=== PATIENT | female | born 1970 | race Caucasian/White ===

== ENCOUNTER 2021-08-09 18:39 | Inpatient (IN) | payer OTHER ==
[~2021-08-09] VITALS: Ht 172.7 cm; Wt 82.7 kg
[2021-08-09 18:39] VITALS: BP_SYST 135
--- NOTE | 2021-08-09 18:39 | NUR ---
PT WITH VENT SETTING OF AC18, VT 450, PEEP +5, 100%
--- NOTE | 2021-08-09 18:39 | NUR ---
PT FOUND [facility] [place], OVERDOSE, GIVEN NARCAN INTRANASALLY BY MEDICS. POSSIBLE OVERDOSE ON FENTANYL PER PARAMEDICS. ALL STAFF TO BEDSIDE FOR QUICK INTERVENTIO
--- NOTE | 2021-08-09 18:39 | NUR ---
UPON ARRIVAL TO ER, PT WAS UNRESPONSIVE AND DR PALAFOX ORDERS FOR INTUBATION, PT INTUBATED AT 1836, WITH 7.0, 22 AT THE LIP.
--- NOTE | 2021-08-09 18:46 | NUR ---
CENTRAL LINE TO LEFT SUBCLAVIAN PLACED BY DR PALAFOX.
[2021-08-09] MEDS ORDERED: NACL 0.9% 1,000 ML IV ONE ×2 (19:00→19:30)
[2021-08-09 19:05] LABS: BILIRUBIN,URINE 1+ (NEGATIVE); COLOR,URINE YELLOW (YELLOW); GLUCOSE,URINE NEGATIVE (NEGATIVE); KETONES,URINE TRACE (NEGATIVE); LEUKOCYTE ESTERASE ,URINE TRACE (NEGATIVE); NITRITE, URINE NEGATIVE (NEGATIVE); PH,URINE 5.5 (5.0-8.0); PROTEIN URINE 2+ (NEGATIVE); UROBILINOGEN,URINE 0.2 (0.2-1.0)
[2021-08-09 19:12] LABS: BLOOD, URINE TRACE (NEGATIVE); CLARITY/URINE HAZY (CLEAR)
[2021-08-09] MEDS ORDERED: PROPOFOL DRIP 100 ML IV ONE (19:15)
[2021-08-09] MEDS ORDERED: VANCOMYCIN HCL 1,000 MG in NS 250 ML IV ONE (19:15)
[2021-08-09] MEDS ORDERED: PIPERACILLIN/TAZO 3.375 GM in NS 50 ML IV ONE (19:15)
[2021-08-09 19:19] LABS: CREATININE 1.16 mg/dL (0.55-1.30); POTASSIUM 3.1 mmol/L (3.5-5.1)
[2021-08-09] MEDS ORDERED: PIPERACILLIN/TAZOBACTAM 3.375 GM/VIAL (ZOSYN) IV ONE (19:21)
[2021-08-09 19:23] LABS: BASOPHILS # (AUTO) 0.1 K/uL (0.0-0.2); BASOPHILS % (AUTO) 0.9 % (0.0-2.0); EOSINOPHILS # (AUTO) 0.4 K/uL (0.0-0.4); EOSINOPHILS % (AUTO) 4.1 % (0.0-4.0); HEMATOCRIT 36.4 % (36-48); HEMOGLOBIN 12.4 g/dL (12.0-16.0); LYMPHOCYTES # (AUTO) 2.2 K/uL (1.0-5.5); LYMPHOCYTES % (AUTO) 24.1 % (20.5-51.5); MEAN CORPUSCULAR HEMOGLOBIN 29 pg (27-31); MEAN CORPUSCULAR HGB CONC 34 % (32-36); MEAN CORPUSCULAR VOLUME 85 fL (79.0-98.0); MONOCYTES # (AUTO) 0.9 K/uL (0.0-1.0); MONOCYTES % (AUTO) 10.1 % (1.7-9.3); NEUTROPHILS # (AUTO) 5.5 K/uL (1.8-7.7); NEUTROPHILS % (AUTO) 60.8 % (40.0-70.0); PLATELET COUNT (AUTO) 573 K/uL (130-430); RED BLOOD CELL COUNT(AUTO) 4.28 MIL/uL (4.2-6.2); RED CELL DISTRIBUTION WIDTH 15.2 % (9.0-15.0); WHITE BLOOD COUNT (AUTO) 9.1 K/uL (4.8-10.8)
[2021-08-09 19:24] LABS: ALBUMIN 3.5 g/dL (3.4-4.8); BARBITURATE, URINE NEGATIVE (NEG <=200); BENZODIAZEPINE, URINE NEGATIVE (NEG <=150); CANNABINOID, URINE POSITIVE (NEG <=50); COCAINE, URINE NEGATIVE (NEG <=150); METHAMPHETAMINES SCREEN,URINE POSITIVE (NEG <=500); TOTAL BILIRUBIN 0.4 mg/dL (0.0-1.0); URINE AMPHETAMINE POSITIVE (NEG <=500); URINE METHADONE NEGATIVE (NEG <=200)
[2021-08-09 19:25] LABS: OPIATE, URINE NEGATIVE (NEG <=100); PHENCYCLIDINE SCREEN,URINE NEGATIVE (NEG <=25); UR TRICYCLIC ANTIDEPRESSANTS NEGATIVE (NEG <=300); URINE OXYCODONE SCREEN NEGATIVE (NEG <=100); URINE PROPOXYPHENE SCREEN NEGATIVE (NEG <=300)
[2021-08-09 19:26] LABS: BACTERIA,URINE FEW /HPF (None Seen); FINE GRANULAR CASTS,URINE 0-10 /LPF (None Seen); MUCUS,URINE None Seen /LPF (None Seen); YEAST,URINE Few /HPF (None Seen)
--- NOTE | 2021-08-09 19:44 | NUR ---
Pt in bed 1 at this time intubated. Central line placed by MD Brgiht in right subclavian. Awaiting verification of central line placement via Xray. Normal skin color for ethnicity.
--- NOTE | 2021-08-09 19:50 | NUR ---
Xray at bedside
--- NOTE | 2021-08-09 19:50 | NUR ---
triple lumen central line placed to right subclavian. Use of asceptic technique. Opsite placed over site. Blood return noted. Blood for lab drawn from site. Flushed with 10 cc of normal saline. No evidence of infiltration noted. Patient tolerated well.
--- NOTE | 2021-08-09 19:51 | NUR ---
Left subclavian central line removed by at this time due to incorrect placement
[2021-08-09] MEDS ORDERED: LORazepam 2 MG/ML VIAL IVP PRN (20:30)
[2021-08-09] MEDS ORDERED: ONDANSETRON HCL 4 MG/2 ML VIAL IVP PRN (20:30)
[2021-08-09] MEDS ORDERED: ACETAMINOPHEN 650 MG SUPP.RECT RC PRN (20:30)
[2021-08-09] MEDS ORDERED: KCL 40 mEq in 100 mL (PREMIX) 100 ML IV ONE (20:30)
[2021-08-09] MEDS ORDERED: PROPOFOL DRIP 100 ML IV PRN (20:30)
[2021-08-09] MEDS ORDERED: NOREPINEPHRINE BITARTRATE 32 MG in NS 218 ML IV PRN (20:30)
[2021-08-09] MEDS ORDERED: IPRATROPIUM/ALBUTEROL SULFATE 3 ML AMPUL.NEB (DUONEB) INH PRN (20:45)
[2021-08-09] MEDS: PANTOPRAZOLE SODIUM 40 MG/VIAL (PROTONIX) IVP SCH (21:59)
[2021-08-09] MEDS: LR 1,000 ML IV SCH (22:00)
[2021-08-09 23:23] VITALS: BP_SYST 103
[2021-08-09 23:38] VITALS: BP_SYST 103
[2021-08-10] MEDS ORDERED: KCL 20 mEq in 100 mL (PREMIX) 200 ML IV ONE (00:40)
[2021-08-10] MEDS ORDERED: PIPERACILLIN/TAZOBACTAM 3.375 GM/VIAL (ZOSYN) IV ONE ×3 (01:04→18:00)
[2021-08-10] MEDS: LR 1,000 ML IV SCH ×5 (01:13→12:24)
[2021-08-10] MEDS: PIPERACILLIN/TAZO 3.375 GM in NS 50 ML IV SCH ×4 (01:14→18:07)
[2021-08-10] MEDS: methylPREDNISolone SOD SUCC/PF 62.5 MG/ML VIAL IVP SCH ×4 (01:15→18:08)
[2021-08-10 03:13] VITALS: BP_SYST 99
--- NOTE | 2021-08-10 05:17 | NUR ---
No signs of acute distress at this time. Pt remains on vehicle monitor technician and pulse oximetry. Pt makes occasional non-purposeful movements with bilateral upper and lower extremities. VSS. Bed in low position. Side rails up.
[2021-08-10 06:00] VITALS: BP_SYST 102
--- NOTE | 2021-08-10 07:15 | NUR ---
PATIENT SELF EXTUBATED. MD GARCIA VERBALLY ORDERED RACEMIC EPINEPHRIN. GAVE RACEMIC EPINEPHRIN BUT PATIENT REFUSED HHN TX MIDDLE OF TX. PLACED ON NC 6LPM SPO2 96, HR 86. NO RESPIRATORY DISTRESS NOTED AT THIS TIME. WILL MONITOR PATIENT.
[2021-08-10] MEDS ORDERED: RACEPINEPHRINE HCL 0.5 ML VIAL.NEB INH ONE ×2 (07:17→07:30)
[2021-08-10] MEDS ORDERED: NALOXONE HCL 2 MG/2 ML SYR ONE (07:20)
--- NOTE | 2021-08-10 07:48 | NUR ---
Upon start of shift pt in bed intubated but awake. RASS score +3. Pt self extubated. ED physician at bedside. RT at bedside. Ed physician gave propofol bolus via central line to help pt calm down. Pt given 1 mg IV ativan per PRN orders. Pt put on NC O2 delivery at 5-6 L. Pt maintiang airway at this time. Will continue to monitor pt. Addendum: 08/10/21 at 1017 by [id number] Propofol drip stopped
[2021-08-10] MEDS ORDERED: NALOXONE HCL 2 MG/2 ML SYR IVP ONE (08:00)
--- NOTE | 2021-08-10 08:00 | NUR ---
Pt self removed ibrahim catheter.
--- NOTE | 2021-08-10 08:05 | NUR ---
Per ED physician orders. Pt placed on 2 point soft wrist restraints due to pulling on medical issues.
[2021-08-10 08:53] LABS: BASOPHILS # (AUTO) 0.1 K/uL (0.0-0.2); BASOPHILS % (AUTO) 0.7 % (0.0-2.0); EOSINOPHILS # (AUTO) 0.3 K/uL (0.0-0.4); EOSINOPHILS % (AUTO) 2.8 % (0.0-4.0); HEMATOCRIT 39.8 % (36-48); HEMOGLOBIN 13.1 g/dL (12.0-16.0); LYMPHOCYTES # (AUTO) 1.6 K/uL (1.0-5.5); LYMPHOCYTES % (AUTO) 16.2 % (20.5-51.5); MEAN CORPUSCULAR HEMOGLOBIN 28 pg (27-31); MEAN CORPUSCULAR HGB CONC 33 % (32-36); MEAN CORPUSCULAR VOLUME 86 fL (79.0-98.0); MONOCYTES % (AUTO) 9.8 % (1.7-9.3); NEUTROPHILS % (AUTO) 70.5 % (40.0-70.0); PLATELET COUNT (AUTO) 580 K/uL (130-430); RED BLOOD CELL COUNT(AUTO) 4.63 MIL/uL (4.2-6.2); RED CELL DISTRIBUTION WIDTH 15.6 % (9.0-15.0); WHITE BLOOD COUNT (AUTO) 9.9 K/uL (4.8-10.8)
[2021-08-10] MEDS: PANTOPRAZOLE SODIUM 40 MG/VIAL (PROTONIX) IVP SCH ×2 (09:45→21:00)
[2021-08-10 10:35] LABS: CALCIUM 7.3 mg/dL (8.4-11.0); CREATININE 0.97 mg/dL (0.55-1.30); POTASSIUM 4.2 mmol/L (3.5-5.1)
[2021-08-10 10:48] LABS: PHOSPHORUS 3.7 mg/dL (2.7-4.5); TOTAL BILIRUBIN 0.5 mg/dL (0.0-1.0)
[2021-08-10 11:40] LABS: ALBUMIN 2.9 g/dL (3.4-4.8)
[2021-08-10] MEDS: VANCOMYCIN HCL 750 MG in NS 250 ML IV SCH (12:01)
--- NOTE | 2021-08-10 12:12 | NUR ---
DR ABREU HERE TO EVALUATE PT
--- NOTE | 2021-08-10 13:11 | NUR ---
Pt sleeping at this time. Bilateral wrist restraints stopped at this time. Will continue to monitor pt.
--- NOTE | 2021-08-10 13:55 | NUR ---
Pt wrist restraints paused due to pt being more cooperative and sleeping. Pulses +2 BUE. Cap refill < 3sec. No complications noted. Will continue to monitor pt
--- NOTE | 2021-08-10 16:09 | NUR ---
25cc of propofol remainder of IV infusion wasted down drain witnessed by Riri VALDEZ.
--- NOTE | 2021-08-10 16:53 | NUR ---
Pt resting in bed. Pt sleeping at this time in no distress. 5L NC O2 delivery in place. Will continue to monitor pt
--- NOTE | 2021-08-10 19:26 | NUR ---
REPORT RECIEVED FROM SHANTA VALDEZ. PT IN BED RESTING, NO DISTRESS. WILL MONITOR CLOSELY
--- NOTE | 2021-08-10 19:44 | NUR ---
Admit bed requested Patient will be admitted to care of . Admitted to TELE unit. Diagnosis ACUTE RESP FAILURE Inpatient (Yes or No) YES Observation (Yes or No) YES Orientation concerns or request close to nursing station (Yes or No) YES Covid Status NEG On vent or bipap NO Isolation requirements NO Needs a sitter NO From Home (Yes or if No enter name of facility) YES Requires Dialysis (Yes or No) NO Med Rec Completed (Yes of No) PENDING
--- NOTE | 2021-08-10 23:35 | NUR ---
PT IN BED RESTING WITH NASAL CANNULA IN PLACE, PT IN NO ACUTE DISTRESS. PT PROVIDED WITH TOILETING AND HYGEIENE ASSISTANCE. PENDING ADMISSION, WILL MONITOR CLOSELY
[2021-08-11] MEDS: VANCOMYCIN HCL 750 MG in NS 250 ML IV SCH (02:22)
[2021-08-11] MEDS: LR 1,000 ML IV SCH ×2 (02:23→10:43)
--- NOTE | 2021-08-11 02:52 | NUR ---
Admission Note Received patient from ER with diagnosis of RESP FAILURE. Initial Plan of Care discussed-patient verbalized understanding. . Oriented to room, call light, pain management and safety procedures explained call aguirre use , FALL RISK MEASURES IMPLEMENTED assist as needed BED ALARM IS ON , MONITOR .
[2021-08-11 02:56] VITALS: BP_SYST 135
--- NOTE | 2021-08-11 03:45 | NUR ---
PHOTOS PICTURES TAKEN OF MULTIPLE DRY SCABS LEFT & RIGHT NECK ARMS & LEGS & PUT IN MEDICAL RECORD .
--- NOTE | 2021-08-11 03:46 | NUR ---
FALL RISK , PATIENT RESTING NO ACUTE DISTRESS BED ALARM IS ON , MONITOR .
[2021-08-11] MEDS ORDERED: PIPERACILLIN/TAZOBACTAM 3.375 GM/VIAL (ZOSYN) IV ONE (05:37)
[2021-08-11] MEDS: PIPERACILLIN/TAZO 3.375 GM in NS 50 ML IV SCH (06:01)
[2021-08-11] MEDS: methylPREDNISolone SOD SUCC/PF 62.5 MG/ML VIAL IVP SCH (06:02)
[2021-08-11] MEDS: PANTOPRAZOLE SODIUM 40 MG/VIAL (PROTONIX) IVP SCH ×2 (06:02→21:15)
[2021-08-11 07:31] LABS: BASOPHILS # (AUTO) 0.1 K/uL (0.0-0.2); BASOPHILS % (AUTO) 0.4 % (0.0-2.0); HEMATOCRIT 40.6 % (36-48); HEMOGLOBIN 13.4 g/dL (12.0-16.0); LYMPHOCYTES # (AUTO) 0.7 K/uL (1.0-5.5); LYMPHOCYTES % (AUTO) 3.2 % (20.5-51.5); MEAN CORPUSCULAR HEMOGLOBIN 29 pg (27-31); MEAN CORPUSCULAR HGB CONC 33 % (32-36); MEAN CORPUSCULAR VOLUME 87 fL (79.0-98.0); MONOCYTES % (AUTO) 4.4 % (1.7-9.3); NEUTROPHILS # (AUTO) 21.5 K/uL (1.8-7.7); PLATELET COUNT (AUTO) 548 K/uL (130-430); RED BLOOD CELL COUNT(AUTO) 4.68 MIL/uL (4.2-6.2); RED CELL DISTRIBUTION WIDTH 15.7 % (9.0-15.0); WHITE BLOOD COUNT (AUTO) 23.4 K/uL (4.8-10.8)
--- NOTE | 2021-08-11 08:00 | NUR ---
RECEIVED REPORT FROM PM NURSE, PATIENT RESTING COMFORTABLY IN BED, NO C/O PAIN OR DISCOMFORT AT THIS TIME, WILL ASSUME ALL CARE OF PATIENT
[2021-08-11 08:24] LABS: CREATININE 0.81 mg/dL (0.55-1.30); POTASSIUM 5.1 mmol/L (3.5-5.1); TOTAL BILIRUBIN 0.3 mg/dL (0.0-1.0)
--- NOTE | 2021-08-11 09:43 | NUR ---
CONSULTATION PAGED/CALLED Reason for Consultation: [] DEPRESSION/SUICIDAL IDEATION Person Who was Notified: [] DR VALLADARES ON HIS CELL Consulting Physician: [] DR VALLADARES Customs Opener Verifier Packer Specialty: [] PSYCH Ordering Physician: [] DR ABREU
--- NOTE | 2021-08-11 10:30 | NUR ---
PATIENT SEEN BY PSYCH, 5150 HOLD SIGNED BY
[2021-08-11 11:27] VITALS: BP_SYST 106
--- NOTE | 2021-08-11 12:46 | NUR ---
CONSULTATION PAGED/CALLED Reason for Consultation: [] Srpsis Person Who was Notified: []Magaly Consulting Physician: [] Darien Walters Transportation Refrigeration Technician Specialty: [] Infectious Ordering Physician: []Dr. Bishop
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
[2021-08-11] MEDS: PIPERACILLIN/TAZOBACTAM 3.375 GM/ DEX-IS 50 ML PREMIX IV SCH ×2 (13:45→21:15)
[2021-08-11 16:45] VITALS: BP_SYST 109
--- NOTE | 2021-08-11 18:09 | NUR ---
PATIENT ASLEEP, NO OUTWARD SIGNS OR SYMPTOMS OF DISTRESS OR DISCOMFORT OBSERVED, WILL ENDORSE CARE TO PM NURSE
--- NOTE | 2021-08-11 19:15 | NUR ---
OPENING NOTE PT IS SEMI FOWLERS SLEEPING IN BED. NO APPARENT SIGNS OF DISTRESS NOTED AT THIS TIME. BED IS IN LOWEST POSITION WITH FALL AND SAFETY PRECAUTIONS IN PLACE. SITTER PRESENT
[2021-08-11 20:00] VITALS: BP_SYST 104
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
[2021-08-11] MEDS: ACETAMINOPHEN 325 MG TABLET PO PRN (21:59)
[2021-08-12] VITALS: BP_SYST 110
[2021-08-12] MEDS: PIPERACILLIN/TAZOBACTAM 3.375 GM/ DEX-IS 50 ML PREMIX IV SCH ×4 (01:12→20:30)
--- NOTE | 2021-08-12 04:05 | NUR ---
LAB DRAW Patient resting in bed w/eyes closed. Awakened for lab draw by [employer]. Patient was calm and cooperative during procedure, tolerated.
[2021-08-12 04:46] LABS: BASOPHILS # (AUTO) 0.1 K/uL (0.0-0.2); BASOPHILS % (AUTO) 0.3 % (0.0-2.0); EOSINOPHILS % (AUTO) 0.2 % (0.0-4.0); HEMATOCRIT 37.7 % (36-48); HEMOGLOBIN 12.5 g/dL (12.0-16.0); LYMPHOCYTES # (AUTO) 1.7 K/uL (1.0-5.5); LYMPHOCYTES % (AUTO) 10.5 % (20.5-51.5); MEAN CORPUSCULAR HEMOGLOBIN 28 pg (27-31); MEAN CORPUSCULAR HGB CONC 33 % (32-36); MEAN CORPUSCULAR VOLUME 85 fL (79.0-98.0); MONOCYTES # (AUTO) 1.3 K/uL (0.0-1.0); MONOCYTES % (AUTO) 7.8 % (1.7-9.3); NEUTROPHILS # (AUTO) 13.4 K/uL (1.8-7.7); NEUTROPHILS % (AUTO) 81.2 % (40.0-70.0); PLATELET COUNT (AUTO) 515 K/uL (130-430); RED BLOOD CELL COUNT(AUTO) 4.42 MIL/uL (4.2-6.2); RED CELL DISTRIBUTION WIDTH 15.5 % (9.0-15.0); WHITE BLOOD COUNT (AUTO) 16.5 K/uL (4.8-10.8)
[2021-08-12 04:57] LABS: ALBUMIN 2.6 g/dL (3.4-4.8); CALCIUM 7.7 mg/dL (8.4-11.0); CREATININE 0.69 mg/dL (0.55-1.30); POTASSIUM 4.2 mmol/L (3.5-5.1); TOTAL BILIRUBIN 0.4 mg/dL (0.0-1.0)
--- NOTE | 2021-08-12 05:59 | NUR ---
PT AWAKE PT AWAKE TO USE THE BATHROOM. URINE SAMPLE COLLECTED. PT ASKED FOR SOME FOOD, PT ATE CRAKERS AND APPLE SAUCE. PT CALM AND COOPERATIVE
[2021-08-12 06:30] LABS: BILIRUBIN,URINE NEGATIVE (NEGATIVE); BLOOD, URINE NEGATIVE (NEGATIVE); CLARITY/URINE CLEAR (CLEAR); COLOR,URINE YELLOW (YELLOW); GLUCOSE,URINE NEGATIVE (NEGATIVE); KETONES,URINE TRACE (NEGATIVE); LEUKOCYTE ESTERASE ,URINE NEGATIVE (NEGATIVE); NITRITE, URINE NEGATIVE (NEGATIVE); PROTEIN URINE NEGATIVE (NEGATIVE); UROBILINOGEN,URINE 0.2 (0.2-1.0)
--- NOTE | 2021-08-12 07:04 | NUR ---
CLOSING NOTE PT IS SLEEPING IN BED. NO APPARENT DISTRESS AT THIS TIME. BED IS IN LOWEST POSITION WITH FALL AND SAFETY PRECAUTIONS IN PLACE. SITTER PRESENT
[2021-08-12] MEDS: PANTOPRAZOLE SODIUM 40 MG/VIAL (PROTONIX) IVP SCH ×2 (11:23→20:30)
--- NOTE | 2021-08-12 20:00 | NUR ---
Patient alert/oriented x4 denies any suicidal thought calm/cooperative, sitter at bedside.
[2021-08-12 20:07] VITALS: BP_SYST 121
--- NOTE | 2021-08-12 23:20 | NUR ---
PATIENT RESTING: Patient resting quietly. No acute distress noted. Vital signs within normal range.
[2021-08-13 00:10] VITALS: BP_SYST 115
[2021-08-13] MEDS: PIPERACILLIN/TAZOBACTAM 3.375 GM/ DEX-IS 50 ML PREMIX IV SCH ×4 (01:31→21:55)
--- NOTE | 2021-08-13 01:51 | NUR ---
Rounds Patient resting no sign of acute distress., sitter at the bedside.
--- NOTE | 2021-08-13 06:09 | NUR ---
Patient calm and cooperative denies any thought of hurting herself,with sitter at the bedside.
[2021-08-13 08:00] VITALS: BP_SYST 119
--- NOTE | 2021-08-13 08:00 | NUR ---
OPENING NOTE Patient in bed resting, AxO x4. No sign of distress, patient denies pain. Patient denies thoughts of suicide or harm to self or others. IV site is clean, dry, intact and running prescribed fluids. Sitter at bedside for direct observation. Safety checks made and all needs met at this time.
[2021-08-13] MEDS: CITALOPRAM HYDROBROMIDE 20 MG TABLET PO SCH (08:37)
[2021-08-13] MEDS ORDERED: ESCITALOPRAM OXALATE 10 MG TABLET PO SCH (09:00)
[2021-08-13] MEDS: PANTOPRAZOLE SODIUM 40 MG/VIAL (PROTONIX) IVP SCH ×2 (09:00→21:56)
[2021-08-13 12:16] VITALS: BP_SYST 96
--- NOTE | 2021-08-13 12:53 | NUR ---
ROUNDS Patient in bed resting with eyes closed. No sign of distress or pain. IV is patent and running prescribed fluids. Sitter present for direct observation. All needs met at this time and safety checks made.
[2021-08-13 16:00] VITALS: BP_SYST 112
--- NOTE | 2021-08-13 19:30 | NUR ---
PM OPENING NOTES HAND-FF REPORT RECEIVED FROM OSMANY WALLIS RN. REPORTED PT ON 5150 72 HOUR HOLD THAT ENDED THIS A.M. (BUT ACTUALLY FOUND OUT ENDS TOMORROW A.M AT 1000) ONE TO ONE OBSERVATION MAINTAINED. REPORTED SCRATCHES TO NECK AND ARM NEEDS PICS TAKEN. PLAN: D/D TO SNF OR PSYCH SETTING PT IS HOMELESS AND LIVES IN CAR WITH DOG. (MINIATURE PINCHER). BRP, GAIT STEADY. RIGHT SUBCLAVIAN INTACT. PT UNDISTURBED PRESENTLY. ALLOW TO SLEEP. WHEN AWAKE CAN BE ANXIOUS. MONITOR AND ASSIST NEEDED. BED IN LOWEST POSITION WITH WHEELS LOCKED AND CALL LIGHT WITHIN EASY REACH. MONITOR AT BEDSIDE AT ALL TIMES.
[2021-08-13 20:00] VITALS: BP_SYST 127
--- NOTE | 2021-08-13 21:30 | NUR ---
ROUTINE MEDS GIVEN ORDERED. PT VERBALIZED "I NEED TO GET OUT OF HERE BECAUSE I DON'T WANT TO LOSE MY CAR...I LIVE IN IT WITH MY DOG...THAT IS ALL I HAVE".
[2021-08-14] MEDS: ACETAMINOPHEN 325 MG TABLET PO PRN (00:03)
--- NOTE | 2021-08-14 00:15 | NUR ---
MEDICATED WITH 650 TYLENOL FOR RIGHT HIP PAIN.
[2021-08-14] MEDS: PIPERACILLIN/TAZOBACTAM 3.375 GM/ DEX-IS 50 ML PREMIX IV SCH ×2 (02:00→08:47)
--- NOTE | 2021-08-14 03:30 | NUR ---
REPORTED TO THIS NURSE BY CHARGE NURSE UPON RETURNING FROM LUNCH PT WALKING AROUND STATING SHE IS LEAVING HER 5150 HOLD IS UP. RE-EDUCATED PT THAT IT IS NOT UP. PT CALMED DOWN AFTER I GAVE HER SNACKS AND VISITED WITH HER AWHILE.
--- NOTE | 2021-08-14 04:00 | NUR ---
PT DRIFTED OFF TO SLEEP ALLOW TO REST UNDISTURBED.
[2021-08-14 06:33] LABS: BASOPHILS # (AUTO) 0.1 K/uL (0.0-0.2); BASOPHILS % (AUTO) 0.9 % (0.0-2.0); EOSINOPHILS # (AUTO) 0.5 K/uL (0.0-0.4); EOSINOPHILS % (AUTO) 4.5 % (0.0-4.0); HEMATOCRIT 39.5 % (36-48); HEMOGLOBIN 13.3 g/dL (12.0-16.0); LYMPHOCYTES # (AUTO) 2.6 K/uL (1.0-5.5); LYMPHOCYTES % (AUTO) 24.4 % (20.5-51.5); MEAN CORPUSCULAR HEMOGLOBIN 29 pg (27-31); MEAN CORPUSCULAR HGB CONC 34 % (32-36); MEAN CORPUSCULAR VOLUME 85 fL (79.0-98.0); MONOCYTES % (AUTO) 9.3 % (1.7-9.3); NEUTROPHILS # (AUTO) 6.5 K/uL (1.8-7.7); NEUTROPHILS % (AUTO) 60.9 % (40.0-70.0); PLATELET COUNT (AUTO) 505 K/uL (130-430); RED BLOOD CELL COUNT(AUTO) 4.64 MIL/uL (4.2-6.2); RED CELL DISTRIBUTION WIDTH 15.2 % (9.0-15.0); WHITE BLOOD COUNT (AUTO) 10.7 K/uL (4.8-10.8)
[2021-08-14 06:51] LABS: CALCIUM 7.7 mg/dL (8.4-11.0); CREATININE 0.83 mg/dL (0.55-1.30); POTASSIUM 3.4 mmol/L (3.5-5.1)
--- NOTE | 2021-08-14 07:30 | NUR ---
PM CLOSING NOTES HAND-OFF REPORT GIVEN TO JOHANN VALDEZ. PT APPEARS SLEEPING STILL. REPORTED TO A.M. NURSE 515 HOLD ENDS AT 1000 TODAY. RELINQUISHED CARE OR PT AT THIS TIME. UNSUCCESSFUL IN GETTING PT TO AGREE TO PHOTOS OF NECK AND ARM SCRATCHES THIS SHIFT.
[2021-08-14 08:30] VITALS: BP_SYST 125
[2021-08-14] MEDS: PANTOPRAZOLE SODIUM 40 MG/VIAL (PROTONIX) IVP SCH (08:47)
[2021-08-14] MEDS: CITALOPRAM HYDROBROMIDE 20 MG TABLET PO SCH (08:47)
--- NOTE | 2021-08-14 10:30 | NUR ---
patient's hold done at 10 am and patent wants to go AMA paged to ask him if he wants to extend hold, Informed that patient wants to go AMA. explained to the patient the risk of going AMA without completing course of antibiotic patient understand the risk and still wanted to proceed and go AMA and told me that his boyfriend is already waiting outside to pick her up.patient signed AMA form and i removed her cental line on the right subclavian.patient leave at 1035. Addendum: 08/14/21 at 1120 by [facility] RN patient is awake,alert and oriented X 4 when she signed the AMA form and she has no suicidal ideation.
== END 2021-08-14 10:40 | disposition left against medical advice (07) | DRG 720 ==
LOC: SED 18:39 → SIC 19:55 → EDBD 19:55 → STU 08-10 13:30 → SMU 08-12 22:25
PROVIDERS: ADMIT Internal Medicine; ATTEND Internal Medicine
PROC: 5A1935Z Respiratory Ventilation, Less than 24 Consecutive Hours (ICD-10-PCS; principal; 2021-08-09)
PROC: 02HV33Z Insertion of Infusion Device into Superior Vena Cava, Percutaneous Approach (ICD-10-PCS; 2021-08-09)
PROC: 0BH17EZ Insertion of Endotracheal Airway into Trachea, Via Natural or Artificial Opening (ICD-10-PCS; 2021-08-09)
DX: A41.4 Sepsis due to anaerobes (principal); J96.00 Acute respiratory failure, unspecified whether with hypoxia or hypercapnia; R65.21 Severe sepsis with septic shock; E44.0 Moderate protein-calorie malnutrition; T40.411A Poisoning by fentanyl or fentanyl analogs, accidental (unintentional), initial encounter; F33.3 Major depressive disorder, recurrent, severe with psychotic symptoms; E87.6 Hypokalemia; Z53.29 Procedure and treatment not carried out because of patient's decision for other reasons; R45.851 Suicidal ideations; N39.0 Urinary tract infection, site not specified; Z20.822 Contact with and (suspected) exposure to COVID-19; F15.129 Other stimulant abuse with intoxication, unspecified; Z91.14 Patient's other noncompliance with medication regimen; Z59.00 Homelessness unspecified; Z68.27 Body mass index [BMI] 27.0-27.9, adult; Y92.89 Other specified places as the place of occurrence of the external cause
CPT/HCPCS: 36415; 36600; 71045; 76770; 80048; 80053; 80307; 81000; 81003; 82803-TC; 83605; 83735; 84100; 84484; 85025; 87040; 87081; 87086; 87186-TC; 93005; 94002; 94003; 94010; 94640; 96361; 96365; 96367; 99291; C9113; G0378; J2060; J2310; J2543; J2704; J2930; J3480; J7050